=== PATIENT | female | born 1975 | race Two or more races ===

== ENCOUNTER 2017-07-16 06:41 | Inpatient (IN) | payer MEDICAID ==
[~2017-07-16] VITALS: Ht 165.1 cm; Wt 69.8 kg
[~2017-07-16 06:41] MED LIST: ASPIR LOW81 MG PO; FIORICET1 CAP PO; LIPI10 PO
[2017-07-16 06:54] VITALS: Ht 165.1 cm; Wt 69.8 kg
[2017-07-16 08:52] LABS: CALCIUM 8.2 mg/dL (8.5-10.1); CARBON DIOXIDE 24.5 mmol/L (21-32); CHLORIDE SERUM 107 mmol/L (98-107); CREATININE SERUM 0.8 mg/dL (0.6-1.0); GFR1 > 60 mL/min; GLUCOSE SERUM 133 mg/dL (74-106); POTASSIUM SERUM 3.8 mmol/L (3.5-5.1); SODIUM SERUM 140 mmol/L (136-145)
[2017-07-16 11:42] VITALS: BP 121/70
[2017-07-16 12:04] LABS: ALBUMIN 3.6 g/dL (3.4-5.0); BILIRUBIN DIRECT 0.1 mg/dL (0.0-0.2); BILIRUBIN TOTAL 0.38 mg/dL (0.20-1.00); CHOLESTEROL/HDL RATIO 3.3
[2017-07-16 12:13] LABS: T3 TOTAL 1.08 ng/mL
[2017-07-16 12:56] LABS: microscopic required? YES; urine erythrocyte 3+ (NEGATIVE)
[2017-07-16 13:04] LABS: FREE T4 0.98 ng/dL (0.76-1.46); FREE THYROXINE INDEX 2.7 ug/dL (1.4-4.5); T4(THYROXINE) 7.2 ug/dL (4.7-13.3)
[2017-07-16 13:13] LABS: AMPHETAMINE QUAL UR NONE DETECTED (NEG <=1000)
[2017-07-16 13:32] VITALS: BP 104/58
[2017-07-16 16:36] LABS: BASOPHIL % 0.4 % (0-2); PLATELET COUNT 227 x10^3mcL (130-400); RED CELL DISTRIBUTION WIDTH 13.6 % (11.5-14.5)
[2017-07-16 17:19] VITALS: BP 110/67
[2017-07-16 20:49] VITALS: BP 93/51
[2017-07-17 05:30] VITALS: BP 90/45
[2017-07-17 05:42] VITALS: BP 93/50
[2017-07-17 05:50] LABS: CALCIUM 7.7 mg/dL (8.5-10.1); CARBON DIOXIDE 26.6 mmol/L (21-32); CHLORIDE SERUM 113 mmol/L (98-107); CREATININE SERUM 0.6 mg/dL (0.6-1.0); GFR1 > 60 mL/min; GLUCOSE SERUM 103 mg/dL (74-106); PHOSPHOROUS 3.5 mg/dL (2.5-4.9); POTASSIUM SERUM 3.5 mmol/L (3.5-5.1); SODIUM SERUM 143 mmol/L (136-145)
[2017-07-17 06:52] LABS: BASOPHIL % 0.5 % (0-2); PLATELET COUNT 220 x10^3mcL (130-400); RED CELL DISTRIBUTION WIDTH 14.1 % (11.5-14.5)
[2017-07-17] MEDS ORDERED: ROB750 PO (08:25)
[2017-07-17] MEDS ORDERED: LIPI20 PO (08:25)
[2017-07-17] MEDS ORDERED: MECLIZINE HCL12.5 MG PO (08:28)
[2017-07-17] MEDS ORDERED: OSCD PO (08:29)
[2017-07-17 08:31] VITALS: BP 90/54
[2017-07-17 08:35] VITALS: BP 90/54
== END 2017-07-17 11:35 | disposition home or self-care (01) | DRG 48 ==
LOC: ED 06:41 → DU 10:28
PROVIDERS: Emergency Medicine; Family Medicine
DX: G90.8 Other disorders of autonomic nervous system (principal); N17.0 Acute kidney failure with tubular necrosis; J45.909 Unspecified asthma, uncomplicated; Z83.3 Family history of diabetes mellitus; M50.323 Other cervical disc degeneration at C6-C7 level; R31.9 Hematuria, unspecified
CPT/HCPCS: 83880; 84439; C9113; J2405; J7030; J8597; Q0092; Q0162